=== PATIENT | male | born 1960 | race Caucasian/White ===

== ENCOUNTER → 2024-10-07 12:59 | Outpatient (REF) | payer BC, SELFPAY | LOC: HWRAD 12:59 | PROVIDERS: ATTENDING PHYSICIAN Student in an Organized Health Care Education/Training Program; FAMILY PHYSICIAN Family Medicine | DX: M25.572 Pain in left ankle and joints of left foot (principal) | CPT/HCPCS: 73700 ==

== ENCOUNTER → 2024-11-10 10:21 | Outpatient (REF) | payer BC, SELFPAY | LOC: RAD 10:21 | PROVIDERS: ATTENDING PHYSICIAN Student in an Organized Health Care Education/Training Program; FAMILY PHYSICIAN Family Medicine | DX: M25.572 Pain in left ankle and joints of left foot (principal) | CPT/HCPCS: 73700 ==

== ENCOUNTER 2024-12-20 06:14 | Day surgery (SDC) | payer BC, SELFPAY ==
[2024-12-07 08:41] LABS: % Basophils 0.4 % (0-2); % Eosinophils 1.6 % (0-6); % Immature Granulocytes 0.2 % (0-0.5); % Lymphocytes 32.5 % (20.5-51.1); % Monocytes 7.3 % (1.7-9.3); Absolute Eosinophils 0.1 10^3/uL (0-0.7); Absolute Lymphocytes 1.5 10^3/uL (1.2-3.4); Absolute Monocytes 0.3 10^3/uL (0.1-0.6); Absolute Neutrophils 2.6 10^3/uL (1.4-6.5); Hematocrit 41.8 % (39.0-52.0); Hemoglobin 14.1 g/dL (13.0-18.0); Mean Corp Hgb Conc. 33.7 g/dL (33.0-37.0); Mean Corpuscular Hgb 30.1 pg (27.0-31.0); Mean Corpuscular Volume 89.3 fL (80.0-94.0); Mean Platelet Volume 9.7 fL (7.4-10.4); Nucleated Red Blood Cells % 0 % (-); Platelet Count 244 10^3/uL (130-400); Red Blood Cell Count 4.68 10^6/uL (4.70-6.10); Red Cell Dist. Width 12.9 % (11.5-14.5); White Blood Cell Count 4.5 10^3/uL (4.8-10.8)
[2024-12-07 08:55] LABS: Blood Urea Nitrogen 17 mg/dl (9-20); Calcium 9.7 mg/dl (8.4-10.2); Carbon Dioxide 28 mmol/L (22-30); Chloride 104 mmol/L (98-107); Glucose 102 mg/dl (70-99); Potassium 4.9 mmol/L (3.5-5.1); Sodium 140 mmol/L (135-145); eGFR > 60.00
[2024-12-07 14:19] VITALS: BMI 29.8
[2024-12-20] VITALS (10 sets, daily range): BP systolic 115–159; BP diastolic 66–83; BMI 29.8
[2024-12-20] MEDS: CELEBREX 200 MG PO (07:36)
[2024-12-20] MEDS: TYLENOL 1000 MG PO (07:36)
[2024-12-20] MEDS: NORMOSOL-R/PLASMALYTE-A 1000 IV (07:36)
== END 2024-12-20 14:50 | disposition home or self-care (01) ==
LOC: SDS 06:14
PROVIDERS: ATTENDING PHYSICIAN Student in an Organized Health Care Education/Training Program; FAMILY PHYSICIAN Student in an Organized Health Care Education/Training Program
DX: M19.072 Primary osteoarthritis, left ankle and foot (principal)
CPT/HCPCS: 27702; 27687; 27745; 36415; 73610; 76000; 80048; 85025; 93005; C1713; C1763; C1776

== ENCOUNTER 2024-12-26 16:02 | Emergency (ER) | payer BC, SELFPAY ==
[2024-12-26 16:07] VITALS: BP 160/91
[2024-12-26 17:27] VITALS: BMI 29.4
--- NOTE | 2024-12-26 17:44 | ED.GENMED ---
History of Present Illness
General
Chief Complaint: DVT/Possible Blood Clot
Time Seen by Provider: 12/26/24 17:27
History of Present Illness
History of Present Illness:
Patient is postoperative day 6 after left ankle arthroplasty. He presents with swelling to the left calf and concern for possible DVT. Patient denies fevers or chills. Denies any chest pain or shortness of breath.
Past History
Past History
ED Past Medical History: None
ED Past Surgical History: Orthopedic (Knee surgery)
Social History
Tobacco: Non-smoker
Alcohol: Occasional
Personal:
Living: with family
Family History
Family History: Negative Diabetes, Hypertension, Early CAD, Asthma or Cancer
Phy Exam
Physical Exam
Physical Exam:
General: No acute distress
Head: NCAT
Neck, Normal in appearance, no swelling
Respiratory: No Respiratory distress
Abdomen: No distension
Ext: Left lower extremity status post surgical procedure. He has 2 incisions 1 anteriorly and 1 in the medial calf. There is no surrounding erythema or purulence. There is no palpable fluctuance or induration. He has some tenderness just
proximal to the medial incision. Palpable pedal pulses. dependent ecchymosis noted
Neuro: ORTIZ, AOx4
Psych: Normal affect
Skin: Normal color
Course
Orders/Labs/Results
Orders:
Orders
12/26/24 16:07
US Periph Venous LOWER Ext LT Urgent
Comment:
Reason For Exam: swelling, calf pain
Vital Signs
Initial and Last Documented VS:
Initial Vital Signs
Temp Pulse Resp BP Pulse Ox
97.8 F 95 18 160/91 98
12/26/24 16:07 12/26/24 16:07 12/26/24 16:07 12/26/24 16:07 12/26/24 16:07
Last Documented Vital Signs
Temp Pulse Resp BP Pulse Ox
97.8 F 95 18 160/91 98
12/26/24 16:07 12/26/24 16:07 12/26/24 16:07 12/26/24 16:07 12/26/24 16:07
*Critical Care Note
Total Time (30-74mins, 75-104mins- exclusive of procedures): Not Applicable
ED Attending Note
ED Attending Note
ED Attending Note:
Ultrasound result reviewed. There is no clinical evidence or concern for infection at this time. There is no evidence of compression injury or compartment syndrome. I discussed the case with his surgeon Dr. Manriquez who recommends continued
supportive care with elevation and he will see the patient in the office.
-
Portions of this chart may have been created with voice recognition software.� Occasional wrong word or��sound alike� substitutions may have occurred due to the inherent limitations of voice recognition software.
Discharge Plan
Departure
Patient Disposition: Home (Routine Discharge)
Date of Disposition: 12/26/24
Time of Disposition: 18:04
Patient with high blood pressure during this ER visit?: Yes
Discharge Problem:
post operative swelling
Prescriptions:
No Action
polyethylene glycol 3350 17 GRAMS powder in packet
17 grams PO DAILY
docusate sodium 100 MG capsule
100 mg PO DAILY
arrikny-bnqkzvzfdysec-fopmigeg 1 TABLET tablet
2 tab PO BID
Men's 50 Plus Multivitamin 400-20-370 mcg Tablet
1 tab PO DAILY
acetaminophen 500 mg Tablet
1,000 mg PO HS
valsartan 160 mg Tablet
160 mg PO DAILY
Referrals:
Mk Manriquez DPM [Family Provider] -
Activity Restrictions/Additional Instructions:
Please follow-up closely in the office with Dr. Manriquez. Return to the emergency department with new or worsening symptoms
Interventions
Interventions:
*Risk Screen - Suicide Last Done: 12/26/24 16:08
*General Assessment Last Done: 12/26/24 16:08
*Neglect/Abuse Screening Last Done: 12/26/24 16:08
*ED- Fall Risk Assessment Last Done: 12/26/24 17:27
*ED COVID-19 Vaccine History Last Done: 12/26/24 16:08
*Nursing Disposition Last Done: 12/26/24 18:22
ED- Cardiac Assessment Last Done: 12/26/24 17:29
ED- Pulmonary Assessment Last Done: 12/26/24 17:29
ED-Peripheral Vascular Assessment Last Done: 12/26/24 17:29
ED-Skin Assessment Last Done: 12/26/24 17:29
Discharge Date and Time
Discharge Date/Time: 12/26/24 18:29
Print Language: [place]ET[place]
== END 2024-12-26 18:29 | disposition home or self-care (01) ==
LOC: EMR 16:02
PROVIDERS: EMERGENCY PHYSICIAN Emergency Medicine; FAMILY PHYSICIAN Student in an Organized Health Care Education/Training Program; OTHER PHYSICIAN Student in an Organized Health Care Education/Training Program
DX: T81.89XA Other complications of procedures, not elsewhere classified, initial encounter (principal); R22.42 Localized swelling, mass and lump, left lower limb; Y92.9 Unspecified place or not applicable; Z82.49 Family history of ischemic heart disease and other diseases of the circulatory system
CPT/HCPCS: 99284; 93971

== ENCOUNTER → 2025-08-31 10:49 | Outpatient (REF) | payer BC, SELFPAY | LOC: HWRAD 10:49 | PROVIDERS: ATTENDING PHYSICIAN Student in an Organized Health Care Education/Training Program; FAMILY PHYSICIAN Student in an Organized Health Care Education/Training Program | DX: M25.571 Pain in right ankle and joints of right foot (principal) | CPT/HCPCS: 73700 ==